=== PATIENT | female | born 2000 | race Caucasian/White ===

== ENCOUNTER 2021-01-05 14:24 | Emergency (ER) | payer OTHER ==
[~2021-01-05] VITALS: Ht 154.9 cm; Wt 58.6 kg
[~2021-01-05 14:24] MED LIST: FLUO10CA13 PO; LISD20CA4 PO
[2021-01-05 14:51] VITALS: BP 136/89
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
[2021-01-05 15:30] LABS: HCG UR SG 1.024 (1.003-1.030); MICROSCOPIC NOT IND
== END 2021-01-05 17:05 | disposition home or self-care (01) ==
LOC: ED 16:01
DX: S16.1XXA Strain of muscle, fascia and tendon at neck level, initial encounter (principal); S39.012A Strain of muscle, fascia and tendon of lower back, initial encounter; G89.11 Acute pain due to trauma; V43.52XA Car driver injured in collision with other type car in traffic accident, initial encounter; Y93.89 Activity, other specified; Y92.89 Other specified places as the place of occurrence of the external cause; Y99.8 Other external cause status
CPT/HCPCS: 72110; 72125; 81003; 81025; 99285